=== PATIENT | female | born 1995 | race Caucasian/White ===

== ENCOUNTER 2020-04-12 07:56 | Inpatient (IN) | payer OTHER ==
[2020-04-12] MEDS ORDERED: Acetaminophen 325 MG Tab PO PRN (08:21)
[2020-04-12] MEDS ORDERED: Sodium Chloride 0.9% 10 ML Syringe FLUSH PRN (08:21)
[2020-04-12] MEDS: Misoprostol 25 MCG (1/4 of 100 MCG) Tab VAG PRN ×4 (10:01→22:07)
--- NOTE | 2020-04-12 10:46 | PCM.LDHP ---
L&D History of Present Illness - General Date of Service: 04/12/20 Admit Problem/Dx: Patient Status Order with Admit Dx/Problem 04/12/20 08:21 Patient Status [ADT] Routine Admission Diagnosis/Problem Admission Diagnosis/Problem Gestational hypertension Source of Information: Patient - History of Present Illness Introduction:: Patient is a 37w3d female who presented to L & D for induction of labor due to gestational hypertension. She has been feeling well. Denies any headache, RUQ abdominal pain, or vision changes since last seen. She does have pitting edema in both lower legs. Baby has been active. Denies loss of fluid, vaginal discharge, vaginal bleeding. She has been on labetalol 100 mg BID for the last 2 months. She has a history of genital herpes and has been on prophylactic Valtrex since 32 weeks. - Related Data Allergies/Adverse Reactions: Allergies Allergy/AdvReac Type Severity Reaction Status Date / Time No Known Allergies Allergy Verified 04/12/20 08:53 Home Medications: Home Meds Labetalol HCl [Labetalol] 100 mg PO DAILY 03/22/20 [History] #103/Iron Fumarate/Fa [ ] 1 tab PO DAILY 03/22/20 [History] valACYclovir [Valtrex] 500 mg PO DAILY 03/22/20 [History] Past Medical History Cardiovascular History: Reports: Other (See Below) Other Cardiovascular History: gestational htn Gastrointestinal History: Reports: Gastritis, GERD Genitourinary History: Reports: [employer] History: Reports: , Other (See Below) Other OB/BYN History: hx abnormal pap - Past Surgical History HEENT Surgical History: Reports: Oral Surgery Social & Family History - Family History Cardiac: Reports: Hypertension - Tobacco Use Smoking Status *Q: Former Smoker Tobacco Use Within Last Twelve Months: No - Caffeine Use Caffeine Use: Reports: None - Alcohol Use Alcohol Use History: No - Recreational Drug Use Recreational Drug Use: No Drug Use in Last 12 Months: No - Living Situation & Occupation Living situation: Reports: H&P Review of Systems - Review of Systems: Review Of Systems: See Below General: Denies: Fever, Chills, Weakness HEENT: Denies: Headaches, Visual Changes Pulmonary: Denies: Shortness of Breath, Cough Cardiovascular: Reports: Edema, Blood Pressure Problem. Denies: Chest Pain, Palpitations, Orthopnea, Lightheadedness Gastrointestinal: Denies: Abdominal Pain, Nausea, Vomiting Skin: Denies: Rash Neurological: Denies: Dizziness, Headache, Numbness, Weakness L&D Exam - Exam Exam: See Below - OB Specific Fundal Height In cm: 38 Contraction Frequency (min): 3-6 Contraction Intensity: Mild Movement: Active Heart Tones: Present Heart Tones per Min: 140 Heart Rate (FHR) Variability: Moderate (6-25 bmp) - Riggins Score Riggins Score Cervix Position: Posterior Riggins Score Consistency: Firm Riggins Score Effacement: 31-50% Riggins Score Dilation: Closed Riggins Score Infant's Station: -3 Riggins Score Total: 1 - Exam General: Alert, Oriented HEENT: Conjunctiva Clear Neck: Supple, Trachea Midline Lungs: Clear to Auscultation, Normal Respiratory Effort Cardiovascular: Regular Rate, Regular Rhythm, Normal S1, Normal S2 GI/Abdominal Exam: Non-Tender Genitourinary: Normal external exam (no herpes lesions noted) Extremities: Pedal Edema (3+) Skin: Warm, Intact Neurological: Reflexes Equal Bilateral. No: Focal Deficit Psychiatric: Alert, Normal Affect, Normal Mood - Patient Data Lab Results Last 24 hrs: Laboratory Results - last 24 hr 04/12/20 04/12/20 04/12/20 Range/Units 08:20 09:00 09:05 WBC 10.8 H (5.0-10.0) 10^3/uL RBC 3.75 L (4.2-5.4) 10^6/uL Hgb 11.3 L (12.0-16.0) g/dL Hct 35.1 L (37.0-47.0) % MCV 93.6 (80-100) fL MCH 30.1 (27.0-34.0) pg MCHC 32.2 L (33.0-35.0) g/dL Plt Count 214 (150-450) 10^3/uL BUN (7-18) mg/dL Creatinine (0.55-1.02) mg/dL Est Cr Clr Drug Dosing Estimated GFR (MDRD) Uric Acid (2.6-6.0) mg/dL AST (15-37) U/L ALT (14-59) U/L Lactate Dehydrogenase (81-234) U/L Ur Random Creatinine 138.68 (No establ ref range) mg/dL U Random Total Protein 80.2 H (0.0-11.9) mg/dL Protein/Creatinin Ratio 578.3 H (<150.0) mg/g COVID-19 ([place]) Negative (NEGATIVE) 04/12/20 Range/Units 09:05 WBC (5.0-10.0) 10^3/uL RBC (4.2-5.4) 10^6/uL Hgb (12.0-16.0) g/dL Hct (37.0-47.0) % MCV (80-100) fL MCH (27.0-34.0) pg MCHC (33.0-35.0) g/dL Plt Count (150-450) 10^3/uL BUN 12 (7-18) mg/dL Creatinine 0.59 (0.55-1.02) mg/dL Est Cr Clr Drug Dosing TNP Estimated GFR (MDRD) > 60 Uric Acid 4.3 (2.6-6.0) mg/dL AST 21 (15-37) U/L ALT 25 (14-59) U/L Lactate Dehydrogenase 247 H (81-234) U/L Ur Random Creatinine (No establ ref range) mg/dL U Random Total Protein (0.0-11.9) mg/dL Protein/Creatinin Ratio (<150.0) mg/g COVID-19 ([place]) (NEGATIVE) Result Diagrams: 04/12/20 09:05 04/12/20 09:05 - Problem List (1) Gestational hypertension SNOMED Code(s): 345924101 ICD Code: O13.9 - GESTATIONAL HTN W/O SIGNIFICANT PROTEINURIA, UNSP TRIMESTER Status: Acute Current Visit: Yes (2) Pre-eclampsia SNOMED Code(s): 221785163 ICD Code: O14.90 - UNSPECIFIED PRE-ECLAMPSIA, UNSPECIFIED TRIMESTER Status: Acute Current Visit: Yes (3) High-risk SNOMED Code(s): 81674647 ICD Code: O09.90 - SUPERVISION OF HIGH RISK , UNSP, UNSP TRIMESTER Status: Acute Current Visit: Yes (4) Group B Streptococcus not isolated SNOMED Code(s): 289413577 ICD Code: [id number] - Status: Acute Current Visit: Yes (5) History of herpes genitalis SNOMED Code(s): 591900017 ICD Code: Z86.19 - PERSONAL HISTORY OF OTHER INFECTIOUS AND PARASITIC DISEASES Status: Acute Current Visit: Yes (6) Depression during in third trimester SNOMED Code(s): 45223755, 613984969 ICD Code: O99.343 - OTH MENTAL DISORDERS COMPLICATING , THIRD TRIMESTER; F32.9 - MAJOR DEPRESSIVE DISORDER, SINGLE EPISODE, UNSPECIFIED Status: Acute Current Visit: Yes Problem List Initiated/Reviewed/Updated: Yes Orders Last 24hrs: Active Orders 24 hr Category Date Time Status Patient Status [ADT] Routine ADT 04/12/20 08:21 Active Communication Order [RC] ASDIRECTED Care 04/12/20 08:21 Active Notify Provider Vital Signs OB [RC] ASDIRECTED Care 04/12/20 08:21 Active Notify Provider [RC] PRN Care 04/12/20 08:21 Active Notify Provider [RC] PRN Care 04/12/20 08:21 Active Notify Provider [RC] STAT Care 04/12/20 08:21 Active Peripheral IV Care [RC] . DIRECTED Care 04/12/20 08:22 Active Up ad [place] [RC] PER UNIT ROUTINE Care 04/12/20 08:21 Active Vaginal Exam [RC] PRN Care 04/12/20 08:21 Active Vital Signs [RC] PER UNIT ROUTINE Care 04/12/20 08:21 Active Nothing per Oral Now Diet [DIET] Diet 04/12/20 Breakfast Active Acetaminophen [Tylenol] Med 04/12/20 08:21 Active 650 mg PO Q4H PRN Lactated Ringers [Ringers, Lactated] 1,000 ml Med 04/12/20 08:30 Active IV ASDIRECTED Oxytocin/Normal Saline [Pitocin in NS 30 UNIT/500 ML] Med 04/12/20 12:00 Active 30 unit in 500 ml IV TITRATE Sodium Chloride 0.9% [Saline Flush] Med 04/12/20 08:21 Active 10 ml FLUSH ASDIRECTED PRN miSOPROStoL [Cytotec] Med 04/12/20 08:21 Active 25 mcg VAG Q4H PRN Peripheral IV Insertion Adult [OM.PC] Urgent Oth 04/12/20 08:21 Ordered Medication Orders Acetaminophen (Tylenol) 650 mg PO Q4H PRN PRN Reason: Pain/Fever Lactated Ringer's (Ringers, Lactated) 1,000 mls @ 999 mls/hr IV ASDIRECTED DENIS Oxytocin/Sodium Chloride (Pitocin In Ns 30 Unit/500 Ml) 30 unit in 500 mls @ 2 mls/hr IV TITRATE DENIS; Protocol Misoprostol (Cytotec) 25 mcg VAG Q4H PRN PRN Reason: cervical ripening Sodium Chloride (Saline Flush) 10 ml FLUSH ASDIRECTED PRN PRN Reason: Keep Vein Open Assessment/Plan Comment:: Cytotec for cervical ripening. Initiate Pitocin when appropriate. AROM when able. Analgesic as desired when making cervical change. Close blood pressure monitoring. Strict I's and O's. Continue labetalol 100 mg BID while receiving cytotec. Labs confirm diagnosis of preeclampsia. Patient had a couple blood pressures close to severe range and one in severe range. Repeat 15 minutes later was normal. Labile and related to some anxiety. Will continue to monitor. GBS negative, no abx needed. Ying Espinosa MD
[2020-04-12] MEDS ORDERED: Labetalol 20 MG/4 ML Syringe IVPUSH ONE (14:10)
[2020-04-12] MEDS ORDERED: Labetalol 100 MG Tab PO ONE (19:16)
[2020-04-12] MEDS ORDERED: hydrOXYzine HCl 25 MG Tab PO PRN (20:26)
--- NOTE | 2020-04-12 20:26 | PCM.PNLD ---
Labor Progress Note - VS & Meds Vital Signs: Last Vital Signs Temp 98.9 F 04/12/20 17:30 Pulse 68 04/12/20 20:09 Resp 18 04/12/20 14:30 BP 149/90 H 04/12/20 20:09 Pulse Ox Active Medications: Current Medications Acetaminophen (Tylenol) 650 mg PO Q4H PRN PRN Reason: Pain/Fever Lactated Ringer's (Ringers, Lactated) 1,000 mls @ 999 mls/hr IV ASDIRECTED DENIS Oxytocin/Sodium Chloride (Pitocin In Ns 30 Unit/500 Ml) 30 unit in 500 mls @ 2 mls/hr IV TITRATE DENIS; Protocol Misoprostol (Cytotec) 25 mcg VAG Q4H PRN PRN Reason: cervical ripening Last Admin: 04/12/20 18:02 Dose: 25 mcg Documented by: Sodium Chloride (Saline Flush) 10 ml FLUSH ASDIRECTED PRN PRN Reason: Keep Vein Open Discontinued Medications Labetalol HCl (Normodyne) 10 mg IVPUSH ONETIME ONE Stop: 04/12/20 14:11 Labetalol HCl (Normodyne) 100 mg PO ONETIME ONE Stop: 04/12/20 19:17 Last Admin: 04/12/20 20:09 Dose: 100 mg Documented by: - Uterine Contractions Uterine Monitoring Mode: External [place] Contraction Frequency (min): 2-5 Contraction Duration (sec): 30-80 Contraction Intensity: Mild Uterine Resting Tone: Soft - Monitoring Heart Rate (FHR) Baseline: 140 Heart Rate (FHR) Variability: Moderate (6-25 bmp) Accelerations: Present, 15x15 Decelerations: None Strip Review: Category I - Vaginal Exam Dilation (cm): 1+ Effacement (Percent): 60 Station: -1 Cervical Position: Posterior Sterile Vaginal Exam Performed By: Morelia Hernandez - Labor Progress (Free Text) Labor Progress: Patient comfortable with contractions. Denies headaches, vision changes, RUQ abdominal pain, or worsening edema. Blood pressures labile. Patient somewhat anxious and blood pressure does rise after checks and updates. Will continue to monitor closely. Continue cytotec overnight. Will reevaluate before 6 AM dose of cytotec. Atarax as needed to help with anxiety and sleep. Ying Espinosa MD
[2020-04-12] MEDS ORDERED: Tranexamic Acid 1,000 MG in Sodium Chloride 0.9% 100 ML IV PRN (20:30)
[2020-04-12] MEDS ORDERED: Ondansetron 4 MG/2 ML SDV IVPUSH PRN (20:30)
[2020-04-12] MEDS ORDERED: Carboprost Tromethamine 250 MCG/1 ML Amp IM PRN (20:30)
[2020-04-12] MEDS ORDERED: Lidocaine 1% 30 ML SDV INJECT PRN (20:30)
[2020-04-12] MEDS ORDERED: Methylergonovine 0.2 MG/1 ML Amp IM PRN (20:30)
[2020-04-12] MEDS ORDERED: Misoprostol 400 MCG (4 X 100 MCG TAB) RECTAL PRN (20:30)
[2020-04-13] MEDS: Misoprostol 25 MCG (1/4 of 100 MCG) Tab VAG PRN (02:24)
[2020-04-13] MEDS ORDERED: Labetalol 100 MG Tab PO ONE (06:14)
[2020-04-13] MEDS: Lactated Ringers 1,000 ML IV SCH ×4 (07:39→18:55)
[2020-04-13] MEDS: Oxytocin/Normal Saline 30 UNIT/500 ML BAG IV SCH ×2 (07:56→22:10)
[2020-04-13] MEDS ORDERED: EPINEPHrine 1 MG/1 ML Amp ONE ×2 (09:05→17:48)
--- NOTE | 2020-04-13 10:02 | PCM.PNLD ---
Labor Progress Note - VS & Meds Vital Signs: Last Vital Signs Temp 98.6 F 04/13/20 02:23 Pulse 87 04/13/20 07:29 Resp 20 04/13/20 02:23 BP 172/83 H 04/13/20 07:29 Pulse Ox 98 04/12/20 20:00 Active Medications: Current Medications Acetaminophen (Tylenol) 650 mg PO Q4H PRN PRN Reason: Pain/Fever Carboprost Tromethamine (Hemabate Ds) 250 mcg IM ASDIRECTED PRN PRN Reason: HEMORRHAGE Hydroxyzine HCl (Atarax) 25 mg PO Q8H PRN PRN Reason: Anxiety Lactated Ringer's (Ringers, Lactated) 1,000 mls @ 999 mls/hr IV ASDIRECTED DENIS Last Admin: 04/13/20 07:39 Dose: 125 mls/hr Documented by: Oxytocin/Sodium Chloride (Pitocin In Ns 30 Unit/500 Ml) 30 unit in 500 mls @ 2 mls/hr IV TITRATE DENIS; Protocol Last Admin: 04/13/20 07:56 Dose: 2 munits/min, 2 mls/hr Documented by: Tranexamic Acid 1,000 mg/ (Sodium Chloride) 110 mls @ 660 mls/hr IV ONETIME PRN PRN Reason: Bleeding Lidocaine HCl (Xylocaine-Mpf 1%) 30 ml INJECT ASDIRECTED PRN PRN Reason: Perineal Repair Methylergonovine Maleate (Methergine) 0.2 mg IM ASDIRECTED PRN PRN Reason: Hemorrhage Misoprostol (Cytotec) 25 mcg VAG Q4H PRN PRN Reason: cervical ripening Last Admin: 04/13/20 02:24 Dose: 25 mcg Documented by: Misoprostol (Cytotec) 800 mcg RECTAL ASDIRECTED PRN PRN Reason: Hemorrhage Ondansetron HCl (Zofran) 4 mg IVPUSH Q4H PRN PRN Reason: Nausea/Vomiting Sodium Chloride (Saline Flush) 10 ml FLUSH ASDIRECTED PRN PRN Reason: Keep Vein Open Discontinued Medications Labetalol HCl (Normodyne) 10 mg IVPUSH ONETIME ONE Stop: 04/12/20 14:11 Last Admin: 04/13/20 07:02 Dose: Not Given Documented by: Labetalol HCl (Normodyne) 100 mg PO ONETIME ONE Stop: 04/12/20 19:17 Last Admin: 04/12/20 20:09 Dose: 100 mg Documented by: Labetalol HCl (Normodyne) 100 mg PO ONETIME ONE Stop: 04/13/20 06:15 Last Admin: 04/13/20 07:29 Dose: 100 mg Documented by: - Uterine Contractions Uterine Monitoring Mode: External [place] Contraction Frequency (min): 1-4 Contraction Duration (sec): 60-70 Contraction Intensity: Mild to Moderate Uterine Resting Tone: Soft - Monitoring Heart Rate (FHR) Variability: Moderate (6-25 bmp) Accelerations: Present, 15x15 Decelerations: None Strip Review: Category I - Vaginal Exam Dilation (cm): 4 Effacement (Percent): 80 Station: -2 Cervical Position: Midposition Sterile Vaginal Exam Performed By: Kelly Sousa Vaginal Exam Comment: head applied. - Labor Progress (Free Text) Labor Progress: Five doses of cytotec given overnight and good cervical change noted. Now 3 to 4 cm dilated with 80% effacement. Induction put on hold briefly this morning but will now start pitocin. Patient does desire to do labor without pain medications but options reviewed in case she changes her mind. Discussed AROM procedure and appropriate timing. All questions answered. Blood pressures stable overnight with a few in the 150s/80s. Morning dose of labetalol given. Will continue to monitor. Ying Espinosa MD
[2020-04-13] MEDS ORDERED: fentaNYL 100 MCG/2 ML SDV IVPUSH PRN (15:28)
[2020-04-13] MEDS ORDERED: ePHEDrine 50 MG/ML SDV IVPUSH PRN (15:29)
[2020-04-13] MEDS ORDERED: Naloxone 2 MG/2 ML Syringe IVPUSH PRN (15:29)
[2020-04-13] MEDS ORDERED: Lactated Ringers 500 ML IV SCH ×2 (15:30)
[2020-04-13] MEDS ORDERED: Lactated Ringers 1,000 ML IV SCH (15:45)
--- NOTE | 2020-04-13 17:34 | PCM.PNLD ---
Labor Progress Note - VS & Meds Vital Signs: Last Vital Signs Temp 98.1 F 04/13/20 12:10 Pulse 68 04/13/20 13:15 Resp 16 04/13/20 07:35 BP 141/72 H 04/13/20 13:15 Pulse Ox 98 04/12/20 20:00 Active Medications: Current Medications Acetaminophen (Tylenol) 650 mg PO Q4H PRN PRN Reason: Pain/Fever Carboprost Tromethamine (Hemabate Ds) 250 mcg IM ASDIRECTED PRN PRN Reason: HEMORRHAGE Ephedrine Sulfate (Ephedrine Sulfate) 5 mg IVPUSH Q5M PRN PRN Reason: See Label Comments Fentanyl (Sublimaze) 50 mcg IVPUSH ONETIME PRN PRN Reason: Pain Last Admin: 04/13/20 16:46 Dose: 50 mcg Documented by: Hydroxyzine HCl (Atarax) 25 mg PO Q8H PRN PRN Reason: Anxiety Lactated Ringer's (Ringers, Lactated) 1,000 mls @ 999 mls/hr IV ASDIRECTED [facility] Last Admin: 04/13/20 17:02 Dose: 125 mls/hr Documented by: Oxytocin/Sodium Chloride (Pitocin In Ns 30 Unit/500 Ml) 30 unit in 500 mls @ 2 mls/hr IV TITRATE [facility]; Protocol Last Titration: 04/13/20 14:50 Dose: 7 munits/min, 7 mls/hr Documented by: Tranexamic Acid 1,000 mg/ (Sodium Chloride) 110 mls @ 660 mls/hr IV ONETIME PRN PRN Reason: Bleeding Lactated Ringer's (Ringers, Lactated) 500 mls @ 999 mls/hr IV SEECOMMENT DENIS Lactated Ringer's (Ringers, Lactated) 500 mls @ 999 mls/hr IV .BOLUS DENIS Lactated Ringer's (Ringers, Lactated) 1,000 mls @ 125 mls/hr IV ASDIRECTED [facility] Lidocaine HCl (Xylocaine-Mpf 1%) 30 ml INJECT ASDIRECTED PRN PRN Reason: Perineal Repair Methylergonovine Maleate (Methergine) 0.2 mg IM ASDIRECTED PRN PRN Reason: Hemorrhage Misoprostol (Cytotec) 25 mcg VAG Q4H PRN PRN Reason: cervical ripening Last Admin: 04/13/20 02:24 Dose: 25 mcg Documented by: Misoprostol (Cytotec) 800 mcg RECTAL ASDIRECTED PRN PRN Reason: Hemorrhage Naloxone HCl (Narcan) 0.1 mg IVPUSH SEECOMMENT PRN PRN Reason: Respiratory Depression Ondansetron HCl (Zofran) 4 mg IVPUSH Q4H PRN PRN Reason: Nausea/Vomiting Sodium Chloride (Saline Flush) 10 ml FLUSH ASDIRECTED PRN PRN Reason: Keep Vein Open Discontinued Medications Labetalol HCl (Normodyne) 10 mg IVPUSH ONETIME ONE Stop: 04/12/20 14:11 Last Admin: 04/13/20 07:02 Dose: Not Given Documented by: Labetalol HCl (Normodyne) 100 mg PO ONETIME ONE Stop: 04/12/20 19:17 Last Admin: 04/12/20 20:09 Dose: 100 mg Documented by: Labetalol HCl (Normodyne) 100 mg PO ONETIME ONE Stop: 04/13/20 06:15 Last Admin: 04/13/20 07:29 Dose: 100 mg Documented by: - Uterine Contractions Uterine Monitoring Mode: External [place] Contraction Frequency (min): 1-4 Contraction Duration (sec): 60-70 Contraction Intensity: Mild to Moderate Uterine Resting Tone: Soft - Monitoring Heart Rate (FHR) Baseline: 140 Heart Rate (FHR) Variability: Moderate (6-25 bmp) Accelerations: Present, 15x15 Decelerations: None Strip Review: Category I - Vaginal Exam Dilation (cm): 4 Effacement (Percent): 80 Station: -2 Cervical Position: Midposition Sterile Vaginal Exam Performed By: Kelly Sousa Vaginal Exam Comment: head applied. - Labor Progress (Free Text) Labor Progress: Patient now shreya frequently. AROM performed at 4/80/-2 for clear fluid. Patient and baby tolerated procedure well. She is now having more pain with contractions and discussed use of IV pain medications. Will place one time order for 50 mcg fentanyl PRN. Again discussed intrathecal. Can get at any time now if she desires. Blood pressure remain stable. Continue expectant management. Ying Espinosa MD
[2020-04-13] MEDS ORDERED: fentaNYL 100 MCG/2 ML SDV ONE ×2 (17:48→22:17)
[2020-04-13] MEDS ORDERED: fentaNYL 100 MCG/2 ML SDV ITHECAL ONE (17:49)
--- NOTE | 2020-04-13 18:45 | PCM.PRNOTE ---
- Free Text/Narrative Note: Requested to provide analgesia to full term parturient by provider. Upon entering the room, patient is sitting on edge of bed complaining of severe abdominal/pelvic pain and discomfort. Procedure was discussed with patient including adverse outcomes and expectations. Pt consented to analgesia, SAB/IT. Pt placed into a proper sitting position. Landmarks for SAB/IT were identified and marked. Hands were washed and appropriate PPE was applied. Back was prepped with betadine x3. A sterile, transparent, fenestrated drape was applied. Excess betadine was removed with a 4x4. Using 3 mL of a 1% lidocaine solution, a skin wheel was placed at the L2/L3 interspace. A 24 ga (4 inch) Pencan spinal needle was inserted until positive for CSF. Negative for heme or paresthesias. Injected fentanyl 30 mcg, sufentanil 25 mcg, and 7.5 mg of a 0.75% bupivacaine solution with an epi wash. Pt was placed left lateral position for approximately 20 minutes. There were zero complications or adverse outcomes. Will continue to monitor. Procedure Date & Time: 04/13/20 [id number]
[2020-04-13] MEDS ORDERED: fentaNYL 100 MCG/2 ML SDV IVPUSH ONE (22:21)
[2020-04-13] MEDS ORDERED: Zolpidem 5 MG Tab PO PRN (22:42)
[2020-04-13] MEDS ORDERED: Simethicone 80 MG Tab.Chew PO PRN (22:42)
[2020-04-13] MEDS ORDERED: Famotidine 20 MG Tab PO PRN (22:42)
[2020-04-13] MEDS ORDERED: Misoprostol 400 MCG (4 X 100 MCG TAB) RECTAL PRN (22:42)
[2020-04-13] MEDS ORDERED: Sodium Chloride 0.9% 10 ML Syringe FLUSH PRN (22:42)
[2020-04-13] MEDS ORDERED: Tranexamic Acid 1,000 MG in Sodium Chloride 0.9% 100 ML IV PRN (22:42)
[2020-04-13] MEDS ORDERED: Oxytocin 10 Units/1 ML SDV IM PRN (22:42)
[2020-04-13] MEDS ORDERED: Benzocaine/Menthol 20%-0.5% Spray 56 GM Canister TOP PRN (22:42)
[2020-04-13] MEDS ORDERED: Carboprost Tromethamine 250 MCG/1 ML Amp IM PRN (22:42)
[2020-04-13] MEDS ORDERED: Acetaminophen 325 MG Tab PO PRN (22:42)
--- NOTE | 2020-04-13 22:54 | PCM.DEL ---
L & D Note - General Info Date of Service: 04/13/30 - Delivery Note Labor: Augmented by ARM, Induced by Oxytocin Cervical Ripening Method: Misoprostil Delivery Outcome: Livebirth Infant Delivery Method: Spontaneous Vaginal Delivery-Single Presentation: Left Occiput Anterior (EFRA) Nuchal Cord: None Anesthesia Type: Intrathecal Anesthetic: Lidocaine (Xylocaine) 1% Plain Local Anesthetic Volume: Other (20 cc) Amniotic Fluid Description: Clear Laceration: 1st Degree, Vaginal Suture type: Vicryl Suture size: 3-0 Placenta: Intact, Spontaneous Cord: 3 Vessels Estimated Blood Loss: 400 Score 1 min: 8 Score 5 min: 9 Delivery Comments (Free Text/Narrative):: Patient was admitted for induction of labor for gestational hypertension. She had been on 100 mg labetalol BID and was well controlled. Admission labs showed new diagnosis of preeclampsia. Cervical ripening with cytotec X 5 was given. She was given several doses of oral Labetalol during that time. Pitocin was initiated and AROM performed for clear fluid. Intrathecal anesthesia was provided. She progressed to complete dilation and pushed for 1 hour. Viable male delivered via . The anterior shoulder was delivered with gentle traction. The was placed on the maternal abdomen and the cord was clamped and cut. Placenta was delivered intact via active management. Oxytocin was initiated immediately following the delivery of the placenta. Moderate bleeding was observed so rectal cytotec and TXA both given. Cervix, vagina, and perineum were explored. A right and left vaginal wall laceration with some extension on the left were briskly bleeding so packing applied for 20 minutes. Hemostasis was achieved after packing. Dr. Marquez did step in to help with repair and was able throw a locking stitch in to close the laceration. A bleeding midline laceration also repaired with figure 8 suture. Bleeding controlled. Mother and were stable and remained in the delivery room. - General Info Date of Service: 04/13/20 - Patient Data Vitals - Most Recent: Last Vital Signs Temp 96.9 F 04/13/20 19:00 Pulse 57 L 04/13/20 19:56 Resp 14 04/13/20 19:56 BP 145/73 H 04/13/20 19:15 Pulse Ox 100 04/13/20 19:56 Weight - Most Recent: 262 lb I&O - Last 24 Hours: Intake & Output 04/13/20 04/13/20 04/13/20 06:59 14:59 22:59 Intake Total 720 Output Total 1000 150 Balance -280 -150 Med Orders - Current: Current Medications Fentanyl (Sublimaze) 50 mcg IVPUSH ONETIME PRN PRN Reason: Pain Last Admin: 04/13/20 16:46 Dose: 50 mcg Documented by: Hydroxyzine HCl (Atarax) 25 mg PO Q8H PRN PRN Reason: Anxiety Sodium Chloride (Saline Flush) 10 ml FLUSH ASDIRECTED PRN PRN Reason: Keep Vein Open Discontinued Medications Acetaminophen (Tylenol) 650 mg PO Q4H PRN PRN Reason: Pain/Fever Carboprost Tromethamine (Hemabate Ds) 250 mcg IM ASDIRECTED PRN PRN Reason: HEMORRHAGE Ephedrine Sulfate (Ephedrine Sulfate) 5 mg IVPUSH Q5M PRN PRN Reason: See Label Comments Epinephrine HCl (Adrenalin) Confirm Administered Dose 1 mg .ROUTE .STK-MED ONE Stop: 04/13/20 17:49 Fentanyl (Sublimaze) Confirm Administered Dose 100 mcg .ROUTE .STK-MED ONE Stop: 04/13/20 17:49 Fentanyl (Sublimaze) Confirm Administered Dose 100 mcg .ROUTE .STK-MED ONE Stop: 04/13/20 22:18 Fentanyl (Sublimaze) 50 mcg IVPUSH ONETIME ONE Stop: 04/13/20 22:22 Lactated Ringer's (Ringers, Lactated) 1,000 mls @ 999 mls/hr IV ASDIRECTED DENIS Last Admin: 04/13/20 18:55 Dose: 125 mls/hr Documented by: Oxytocin/Sodium Chloride (Pitocin In Ns 30 Unit/500 Ml) 30 unit in 500 mls @ 2 mls/hr IV TITRATE DENIS; Protocol Last Admin: 04/13/20 22:10 Dose: 250 munits/min, 250 mls/hr Documented by: Tranexamic Acid 1,000 mg/ (Sodium Chloride) 110 mls @ 660 mls/hr IV ONETIME PRN PRN Reason: Bleeding Last Admin: 04/13/20 21:38 Dose: 660 mls/hr Documented by: Lactated Ringer's (Ringers, Lactated) 500 mls @ 999 mls/hr IV SEECOMMENT [facility] Lactated Ringer's (Ringers, Lactated) 500 mls @ 999 mls/hr IV .BOLUS DENIS Lactated Ringer's (Ringers, Lactated) 1,000 mls @ 125 mls/hr IV ASDIRECTED DENIS Labetalol HCl (Normodyne) 10 mg IVPUSH ONETIME ONE Stop: 04/12/20 14:11 Last Admin: 04/13/20 07:02 Dose: Not Given Documented by: Labetalol HCl (Normodyne) 100 mg PO ONETIME ONE Stop: 04/12/20 19:17 Last Admin: 04/12/20 20:09 Dose: 100 mg Documented by: Labetalol HCl (Normodyne) 100 mg PO ONETIME ONE Stop: 04/13/20 06:15 Last Admin: 04/13/20 07:29 Dose: 100 mg Documented by: Lidocaine HCl (Xylocaine-Mpf 1%) 30 ml INJECT ASDIRECTED PRN PRN Reason: Perineal Repair Last Admin: 04/13/20 21:40 Dose: 15 ml Documented by: Methylergonovine Maleate (Methergine) 0.2 mg IM ASDIRECTED PRN PRN Reason: Hemorrhage Misoprostol (Cytotec) 25 mcg VAG Q4H PRN PRN Reason: cervical ripening Last Admin: 04/13/20 02:24 Dose: 25 mcg Documented by: Misoprostol (Cytotec) 800 mcg RECTAL ASDIRECTED PRN PRN Reason: Hemorrhage Last Admin: 04/13/20 21:35 Dose: 800 mcg Documented by: Naloxone HCl (Narcan) 0.1 mg IVPUSH SEECOMMENT PRN PRN Reason: Respiratory Depression Ondansetron HCl (Zofran) 4 mg IVPUSH Q4H PRN PRN Reason: Nausea/Vomiting Last Admin: 04/13/20 17:44 Dose: 4 mg Documented by: Sufentanil Citrate (Sufenta) Confirm Administered Dose 50 mcg .ROUTE .STK-MED ONE Stop: 04/13/20 17:49 - Problem List & Annotations (1) Gestational hypertension SNOMED Code(s): 117913144 Code(s): O13.9 - GESTATIONAL HTN W/O SIGNIFICANT PROTEINURIA, UNSP TRIMESTER Status: Acute Current Visit: Yes (2) Pre-eclampsia SNOMED Code(s): 229925761 Code(s): O14.90 - UNSPECIFIED PRE-ECLAMPSIA, UNSPECIFIED TRIMESTER Status: Acute Current Visit: Yes (3) High-risk SNOMED Code(s): 41178767 Code(s): O09.90 - SUPERVISION OF HIGH RISK , UNSP, UNSP TRIMESTER Status: Acute Current Visit: Yes (4) Group B Streptococcus not isolated SNOMED Code(s): 238667334 Code(s): HVZ8340 - Status: Acute Current Visit: Yes (5) History of herpes genitalis SNOMED Code(s): 161756652 Code(s): Z86.19 - PERSONAL HISTORY OF OTHER INFECTIOUS AND PARASITIC DISEASES Status: Acute Current Visit: Yes (6) Depression during in third trimester SNOMED Code(s): 75893163, 174559821 Code(s): O99.343 - [facility] MENTAL DISORDERS COMPLICATING , THIRD TRIMESTER; F32.9 - MAJOR DEPRESSIVE DISORDER, SINGLE EPISODE, UNSPECIFIED Status: Acute Current Visit: Yes (7) Vaginal delivery SNOMED Code(s): 764757186 Code(s): O80 - ENCOUNTER FOR FULL-TERM UNCOMPLICATED DELIVERY Status: Acute Current Visit: Yes (8) Laceration of vaginal wall or sulcus without perineal laceration during delivery SNOMED Code(s): 010519852 Code(s): O71.4 - OBSTETRIC HIGH VAGINAL LACERATION ALONE Status: Acute Current Visit: Yes - Problem List Review Problem List Initiated/Reviewed/Updated: Yes - My Orders Last 24 Hours: My Active Orders 04/13/20 Breakfast Regular Diet [DIET] 04/13/20 Lunch Regular Diet [DIET] 04/13/20 15:28 fentaNYL [Sublimaze] 50 mcg IVPUSH ONETIME PRN 04/13/20 15:29 Communication Order [RC] PER UNIT ROUTINE Heart Rate [RC] Click to Edit Blood Pressure [OM.PC] Routine 04/13/20 15:30 Lactated Ringers [Ringers, Lactated] 500 ml IV .BOLUS Lactated Ringers [Ringers, Lactated] 500 ml IV SEECOMMENT 04/13/20 15:45 Lactated Ringers [Ringers, Lactated] 1,000 ml IV ASDIRECTED 04/13/20 Dinner Regular Diet [DIET] 04/13/20 22:42 Up ad Shasta [RC] ASDIRECTED Vital Signs [RC] Q4H Acetaminophen [Tylenol] 650 mg PO Q6H PRN Benzocaine/Menthol [Dermoplast Pain Relief [place]] See Dose Instructions TOP Q4H PRN Carboprost Tromethamine [Hemabate DS] 250 mcg IM ASDIRECTED PRN Docusate Sodium [Colace] 100 mg PO BID PRN Famotidine [Pepcid] 20 mg PO BID PRN Ibuprofen [Motrin] 800 mg PO Q8H PRN Oxytocin [Pitocin] 10 unit IM ONETIME PRN Simethicone 80 mg PO Q4H PRN Sodium Chloride 0.9% [Saline Flush] 10 ml FLUSH ASDIRECTED PRN Tranexamic Acid [Cyklokapron] 1,000 mg Sodium Chloride 0.9% [Normal Saline] 100 ml IV ONETIME Zolpidem [Ambien] 5 mg PO BEDTIME PRN miSOPROStoL [Cytotec] 800 mcg RECTAL ONETIME PRN witch Ivis [Medi-Pads] 1 each TOP Q4HR PRN Assess Lochia [WOMSER] Per Unit Routine Assess Uterine Involution [WOMSER] Per Unit Routine Breast Pump [WOMSER] Per Unit Routine Ice Therapy [OM.PC] Per Unit Routine Perineal Care [OM.PC] Per Unit Routine Saline Lock Insert [OM.PC] Urgent Sitz Bath [OM.PC] Per Unit Routine 04/14/20 09:00 CBC W/O DIFF,HEMOGRAM [HEME] Routine Vit with Ca/FA/Iron [ Plus Iron] 1 each PO DAILY
[2020-04-14] MEDS: Ibuprofen 800 MG Tab PO PRN ×3 (00:11→16:20)
[2020-04-14] MEDS: Prenatal Multivitamin with Calcium/Folic Acid/Iron Tab PO SCH (08:12)
[2020-04-14] MEDS: Docusate Sodium 100 MG Cap PO PRN ×2 (08:14→21:24)
--- NOTE | 2020-04-14 12:00 | PCM.PNPP ---
- General Info Date of Service: 04/14/20 Admission Dx/Problem (Free Text): Patient is day 1 s/p vaginal delivery. She reports her lochia is mild. She is not . She has good pain control with OTC medications. She has been advancing her diet and has good PO intake. She denies nausea and vomiting. She has been urinating spontaneously. She is passing flatus. She has not had a bowel movement. She has been ambulating. She has no complaints today. Her blood pressures have been labile again but the most recent pressure was normal. She denies headaches, vision changes, RUQ abdominal pain. Her edema is improving. Functional Status: Reports: Pain Controlled - Review of Systems General: Denies: Fever, Chills HEENT: Denies: Headaches, Visual Changes Pulmonary: Denies: Shortness of Breath, Cough, Wheezing Cardiovascular: Reports: Edema. Denies: Chest Pain, Lightheadedness Gastrointestinal: Denies: Abdominal Pain, Nausea, Vomiting Skin: Denies: Rash Neurological: Denies: Headache, Numbness - Patient Data Vital Signs - Most Recent: Last Vital Signs Temp 98.3 F 04/14/20 08:00 Pulse 89 04/14/20 08:00 Resp 16 04/14/20 08:00 BP 124/76 04/14/20 08:00 Pulse Ox 100 04/14/20 08:00 Weight - Most Recent: 262 lb I&O - Last 24 Hours: Intake & Output 04/13/20 04/14/20 04/14/20 22:59 06:59 14:59 Output Total 375 Balance -375 Lab Results - Last 24 Hours: Laboratory Results - last 24 hr 04/14/20 Range/Units 09:13 WBC 15.3 H (5.0-10.0) 10^3/uL RBC 2.96 L (4.2-5.4) 10^6/uL Hgb 9.0 L D (12.0-16.0) g/dL Hct 28.5 L (37.0-47.0) % MCV 96.3 (80-100) fL MCH 30.4 (27.0-34.0) pg MCHC 31.6 L (33.0-35.0) g/dL Plt Count 210 (150-450) 10^3/uL Med Orders - Current: Current Medications Acetaminophen (Tylenol) 650 mg PO Q6H PRN PRN Reason: mild pain or fever Benzocaine/Menthol (Dermoplast Pain Relief [place]) 0 gm TOP Q4H PRN PRN Reason: Perineal comfort measures Last Admin: 04/14/20 00:10 Dose: 1 spray Documented by: Carboprost Tromethamine (Hemabate Ds) 250 mcg IM ASDIRECTED PRN PRN Reason: Excessive vaginal bleeding Docusate Sodium (Colace) 100 mg PO BID PRN PRN Reason: Constipation Last Admin: 04/14/20 08:14 Dose: 100 mg Documented by: Famotidine (Pepcid) 20 mg PO BID PRN PRN Reason: Heartburn Fentanyl (Sublimaze) 50 mcg IVPUSH ONETIME PRN PRN Reason: Pain Last Admin: 04/13/20 16:46 Dose: 50 mcg Documented by: Hydroxyzine HCl (Atarax) 25 mg PO Q8H PRN PRN Reason: Anxiety Tranexamic Acid 1,000 mg/ (Sodium Chloride) 110 mls @ 660 mls/hr IV ONETIME PRN PRN Reason: Bleeding Ibuprofen (Motrin) 800 mg PO Q8H PRN PRN Reason: Mild Pain or Fever Last Admin: 04/14/20 08:13 Dose: 800 mg Documented by: Misoprostol (Cytotec) 800 mcg RECTAL ONETIME PRN PRN Reason: Hemorrhage Oxytocin (Pitocin) 10 unit IM ONETIME PRN PRN Reason: Bleeding Prenat Multivit/[place]/Iron/Folic Ac ( Plus Iron) 1 each PO DAILY DENIS Last Admin: 04/14/20 08:12 Dose: 1 each Documented by: Simethicone (Simethicone) 80 mg PO Q4H PRN PRN Reason: Gas Sodium Chloride (Saline Flush) 10 ml FLUSH ASDIRECTED PRN PRN Reason: Keep Vein Open Sodium Chloride (Saline Flush) 10 ml FLUSH ASDIRECTED PRN PRN Reason: Keep Vein Open Witch Trinity (Medi-Pads) 1 each TOP Q4HR PRN PRN Reason: Perineal Comfort Measure Last Admin: 04/14/20 00:11 Dose: 1 pad Documented by: Zolpidem Tartrate (Ambien) 5 mg PO BEDTIME PRN PRN Reason: Insomnia Discontinued Medications Acetaminophen (Tylenol) 650 mg PO Q4H PRN PRN Reason: Pain/Fever Carboprost Tromethamine (Hemabate Ds) 250 mcg IM ASDIRECTED PRN PRN Reason: HEMORRHAGE Ephedrine Sulfate (Ephedrine Sulfate) 5 mg IVPUSH Q5M PRN PRN Reason: See Label Comments Epinephrine HCl (Adrenalin) Confirm Administered Dose 1 mg .ROUTE .STK-MED ONE Stop: 04/13/20 17:49 Last Admin: 04/14/20 04:41 Dose: Not Given Documented by: Fentanyl (Sublimaze) Confirm Administered Dose 100 mcg .ROUTE .STK-MED ONE Stop: 04/13/20 17:49 Last Admin: 04/14/20 04:41 Dose: Not Given Documented by: Fentanyl (Sublimaze) Confirm Administered Dose 100 mcg .ROUTE .STK-MED ONE Stop: 04/13/20 22:18 Last Admin: 04/14/20 05:11 Dose: Not Given Documented by: Fentanyl (Sublimaze) 50 mcg IVPUSH ONETIME ONE Stop: 04/13/20 22:22 Last Admin: 04/13/20 22:21 Dose: 50 mcg Documented by: Lactated Ringer's (Ringers, Lactated) 1,000 mls @ 999 mls/hr IV ASDIRECTED DENIS Last Admin: 04/13/20 18:55 Dose: 125 mls/hr Documented by: Oxytocin/Sodium Chloride (Pitocin In Ns 30 Unit/500 Ml) 30 unit in 500 mls @ 2 mls/hr IV TITRATE DENIS; Protocol Last Titration: 04/14/20 00:50 Dose: 0 munits/min, 0 mls/hr Documented by: Tranexamic Acid 1,000 mg/ (Sodium Chloride) 110 mls @ 660 mls/hr IV ONETIME PRN PRN Reason: Bleeding Last Admin: 04/13/20 21:38 Dose: 660 mls/hr Documented by: Lactated Ringer's (Ringers, Lactated) 500 mls @ 999 mls/hr IV SEECOMMENT DENIS Lactated Ringer's (Ringers, Lactated) 500 mls @ 999 mls/hr IV .BOLUS DENIS Lactated Ringer's (Ringers, Lactated) 1,000 mls @ 125 mls/hr IV ASDIRECTED DENIS Labetalol HCl (Normodyne) 10 mg IVPUSH ONETIME ONE Stop: 04/12/20 14:11 Last Admin: 04/13/20 07:02 Dose: Not Given Documented by: Labetalol HCl (Normodyne) 100 mg PO ONETIME ONE Stop: 04/12/20 19:17 Last Admin: 04/12/20 20:09 Dose: 100 mg Documented by: Labetalol HCl (Normodyne) 100 mg PO ONETIME ONE Stop: 04/13/20 06:15 Last Admin: 04/13/20 07:29 Dose: 100 mg Documented by: Lidocaine HCl (Xylocaine-Mpf 1%) 30 ml INJECT ASDIRECTED PRN PRN Reason: Perineal Repair Last Admin: 04/13/20 21:40 Dose: 15 ml Documented by: Methylergonovine Maleate (Methergine) 0.2 mg IM ASDIRECTED PRN PRN Reason: Hemorrhage Misoprostol (Cytotec) 25 mcg VAG Q4H PRN PRN Reason: cervical ripening Last Admin: 04/13/20 02:24 Dose: 25 mcg Documented by: Misoprostol (Cytotec) 800 mcg RECTAL ASDIRECTED PRN PRN Reason: Hemorrhage Last Admin: 04/13/20 21:35 Dose: 800 mcg Documented by: Naloxone HCl (Narcan) 0.1 mg IVPUSH SEECOMMENT PRN PRN Reason: Respiratory Depression Ondansetron HCl (Zofran) 4 mg IVPUSH Q4H PRN PRN Reason: Nausea/Vomiting Last Admin: 04/13/20 17:44 Dose: 4 mg Documented by: Sufentanil Citrate (Sufenta) Confirm Administered Dose 50 mcg .ROUTE .STK-MED ONE Stop: 04/13/20 17:49 Last Admin: 04/14/20 04:41 Dose: Not Given Documented by: - Interaction Support Person: - Recovery Exam Fundal Tone: Firm Fundal Level: At Umbilicus Fundal Placement: Midline Lochia Amount: Small Lochia Color: Rubra/Red Perineum Description: Intact, Minimal Bruising/Swelling Episiotomy/Laceration: Approximated Bladder Status: Voiding Urinary Elimination: Voided - Exam HEENT: Pupils Equal, Mucous Membr. Moist/[place] Neck: Supple Lungs: Clear to Auscultation, Normal Respiratory Effort Cardiovascular: Regular Rate, Regular Rhythm GI/Abdominal Exam: Soft, No Distention Extremities: Non-Tender, Pedal Edema (2+) Skin: Warm, Dry Neurological: No New Focal Deficit, Reflexes Equal Bilateral Psy/Mental Status: Normal Mood - Problem List & Annotations (1) Gestational hypertension SNOMED Code(s): 766101488 Code(s): O13.9 - GESTATIONAL HTN W/O SIGNIFICANT PROTEINURIA, UNSP TRIMESTER Status: Acute Current Visit: Yes (2) Pre-eclampsia SNOMED Code(s): 274777397 Code(s): O14.90 - UNSPECIFIED PRE-ECLAMPSIA, UNSPECIFIED TRIMESTER Status: Acute Current Visit: Yes (3) High-risk SNOMED Code(s): 83938448 Code(s): O09.90 - SUPERVISION OF HIGH RISK , UNSP, UNSP TRIMESTER Status: Acute Current Visit: Yes (4) Group B Streptococcus not isolated SNOMED Code(s): 573226700 Code(s): SZG3939 - Status: Acute Current Visit: Yes (5) History of herpes genitalis SNOMED Code(s): 959040319 Code(s): Z86.19 - PERSONAL HISTORY OF OTHER INFECTIOUS AND PARASITIC DISEASES Status: Acute Current Visit: Yes (6) Depression during in third trimester SNOMED Code(s): 50986222, 276417642 Code(s): O99.343 - OTH MENTAL DISORDERS COMPLICATING , THIRD TRIMESTER; F32.9 - MAJOR DEPRESSIVE DISORDER, SINGLE EPISODE, UNSPECIFIED Status: Acute Current Visit: Yes (7) Vaginal delivery SNOMED Code(s): 596679247 Code(s): O80 - ENCOUNTER FOR FULL-TERM UNCOMPLICATED DELIVERY Status: Acute Current Visit: Yes (8) Laceration of vaginal wall or sulcus without perineal laceration during delivery SNOMED Code(s): 815310731 Code(s): O71.4 - OBSTETRIC HIGH VAGINAL LACERATION ALONE Status: Acute Current Visit: Yes - Problem List Review Problem List Initiated/Reviewed/Updated: Yes - My Orders Last 24 Hours: My Active Orders 04/13/20 Lunch Regular Diet [DIET] 04/13/20 15:28 fentaNYL [Sublimaze] 50 mcg IVPUSH ONETIME PRN 04/13/20 15:29 Blood Pressure [OM.PC] Routine 04/13/20 Dinner Regular Diet [DIET] 04/13/20 20:38 Urinary Catheter Insertion [Insert Urinary Catheter] [OM.PC] PRN 04/13/20 22:42 Up ad [place]asta [RC] ASDIRECTED Vital Signs [RC] Q4H Acetaminophen [Tylenol] 650 mg PO Q6H PRN Benzocaine/Menthol [Dermoplast Pain Relief [place]] See Dose Instructions TOP Q4H PRN Carboprost Tromethamine [Hemabate DS] 250 mcg IM ASDIRECTED PRN Docusate Sodium [Colace] 100 mg PO BID PRN Famotidine [Pepcid] 20 mg PO BID PRN Ibuprofen [Motrin] 800 mg PO Q8H PRN Oxytocin [Pitocin] 10 unit IM ONETIME PRN Simethicone 80 mg PO Q4H PRN Sodium Chloride 0.9% [Saline Flush] 10 ml FLUSH ASDIRECTED PRN Tranexamic Acid [Cyklokapron] 1,000 mg Sodium Chloride 0.9% [Normal Saline] 100 ml IV ONETIME Zolpidem [Ambien] 5 mg PO BEDTIME PRN miSOPROStoL [Cytotec] 800 mcg RECTAL ONETIME PRN witch Trinity [Medi-Pads] 1 each TOP Q4HR PRN Assess Lochia [WOMSER] Per Unit Routine Assess Uterine Involution [WOMSER] Per Unit Routine Breast Pump [WOMSER] Per Unit Routine Ice Therapy [OM.PC] Per Unit Routine Perineal Care [OM.PC] Per Unit Routine Saline Lock Insert [OM.PC] Urgent Sitz Bath [OM.PC] Per Unit Routine 04/14/20 09:00 Vit with Ca/FA/Iron [ Plus Iron] 1 each PO DAILY 04/14/20 20:38 Urinary Catheter Insertion [Insert Urinary Catheter] [OM.PC] PRN - Plan Plan:: Encourage ambulation. Continue to advance diet. Saline lock IV. Continue normal post cares. Continue to ice to minimize swelling. Encouraged oral hydration to increase urine output. Swelling is improving. Continue to monitor blood pressures. Still labile. Some overnight pressures over 150/90 but this mornings was normal. Will have low threshold to restart oral labetalol. Plan for discharge tomorrow. Ying Espinosa MD
[2020-04-15] MEDS: Ibuprofen 800 MG Tab PO PRN ×2 (00:49→08:02)
[2020-04-15] MEDS: Prenatal Multivitamin with Calcium/Folic Acid/Iron Tab PO SCH (08:02)
[2020-04-15] MEDS: Docusate Sodium 100 MG Cap PO PRN (08:02)
--- NOTE | 2020-04-15 08:09 | PCM.DCSUM1 ---
Discharge Summary - Hospital Course Free Text/Narrative:: Patient is a who was brought in for induction of labor at 37w3d for gestational hypertension. Admit labs revealed UPCR of 0.5 so diagnosed with preeclampsia. She continued on oral labetalol through 5 doses of Cytotec. She was then started on pitocin. She received an intrathecal. She required no additional blood pressure medications throughout labor. She progressed to complete dilation and had an uncomplicated delivery. She did have a bleeding vaginal wall laceration that became hemostatic with packing followed by suturing. Her post period was uncomplicated. Her blood pressures were labile but mostly normal on day of discharge. She did not require any blood pressure medications and remained asymptomatic. Her urine output was adequate. She was started on iron for anemia. Discharge hemoglobin was 9.0. Her pain was well controlled. She will follow up in 3 days for blood pressure check. - Discharge Data Discharge Date: 04/14/20 Discharge Disposition: Home, Self-Care 01 Condition: Good - Referral to Home Health Primary Care Physician: Ying Espinosa MD - Discharge Diagnosis/Problem(s) (1) Gestational hypertension SNOMED Code(s): 388172626 ICD Code: O13.9 - GESTATIONAL HTN W/O SIGNIFICANT PROTEINURIA, UNSP TRIMESTER Status: Acute Current Visit: Yes (2) Pre-eclampsia SNOMED Code(s): 092077304 ICD Code: O14.90 - UNSPECIFIED PRE-ECLAMPSIA, UNSPECIFIED TRIMESTER Status: Acute Current Visit: Yes (3) High-risk SNOMED Code(s): 73336216 ICD Code: O09.90 - SUPERVISION OF HIGH RISK , UNSP, UNSP TRIMESTER Status: Acute Current Visit: Yes (4) Group B Streptococcus not isolated SNOMED Code(s): 645456425 ICD Code: [id number] - Status: Acute Current Visit: Yes (5) History of herpes genitalis SNOMED Code(s): 629243758 ICD Code: Z86.19 - PERSONAL HISTORY OF OTHER INFECTIOUS AND PARASITIC DISEASES Status: Acute Current Visit: Yes (6) Depression during in third trimester SNOMED Code(s): 32817048, 015595774 ICD Code: O99.343 - OTH MENTAL DISORDERS COMPLICATING , THIRD TRIME STER; F32.9 - MAJOR DEPRESSIVE DISORDER, SINGLE EPISODE, UNSPECIFIED Status: Acute Current Visit: Yes (7) Vaginal delivery SNOMED Code(s): 131043922 ICD Code: O80 - ENCOUNTER FOR FULL-TERM UNCOMPLICATED DELIVERY Status: Acute Current Visit: Yes (8) Laceration of vaginal wall or sulcus without perineal laceration during delivery SNOMED Code(s): 684484670 ICD Code: O71.4 - OBSTETRIC HIGH VAGINAL LACERATION ALONE Status: Acute Current Visit: Yes - Discharge Plan *PRESCRIPTION DRUG MONITORING PROGRAM REVIEWED*: Not Applicable *COPY OF PRESCRIPTION DRUG MONITORING REPORT IN PATIENT CASSY: Not Applicable Home Medications: Home Meds Labetalol HCl [Labetalol] 100 mg PO DAILY 03/22/20 [History] #103/Iron Fumarate/Fa [ ] 1 tab PO DAILY 03/22/20 [History] valACYclovir [Valtrex] 500 mg PO DAILY 03/22/20 [History] Patient Handouts: Vaginal Delivery, Care of a Perineal Tear Referrals: Ying Espinosa MD [Primary Care Provider] - (Blood pressure recheck on Saturday April 18, 2020 with baby. ) - Discharge Summary/Plan Comment DC Time >30 min.: No - Patient Data Vitals - Most Recent: Last Vital Signs Temp 97.6 F 04/15/20 05:00 Pulse 76 04/15/20 05:00 Resp 20 04/15/20 05:00 BP 122/56 L 04/15/20 05:00 Pulse Ox 100 04/15/20 05:00 Weight - Most Recent: 262 lb Lab Results - Last 24 hrs: Laboratory Results - last 24 hr 04/14/20 Range/Units 09:13 WBC 15.3 H (5.0-10.0) 10^3/uL RBC 2.96 L (4.2-5.4) 10^6/uL Hgb 9.0 L D (12.0-16.0) g/dL Hct 28.5 L (37.0-47.0) % MCV 96.3 (80-100) fL MCH 30.4 (27.0-34.0) pg MCHC 31.6 L (33.0-35.0) g/dL Plt Count 210 (150-450) 10^3/uL Med Orders - Current: Current Medications Acetaminophen (Tylenol) 650 mg PO Q6H PRN PRN Reason: mild pain or fever Benzocaine/Menthol (Dermoplast Pain Relief [place]) 0 gm TOP Q4H PRN PRN Reason: Perineal comfort measures Last Admin: 04/14/20 00:10 Dose: 1 spray Documented by: Carboprost Tromethamine (Hemabate Ds) 250 mcg IM ASDIRECTED PRN PRN Reason: Excessive vaginal bleeding Docusate Sodium (Colace) 100 mg PO BID PRN PRN Reason: Constipation Last Admin: 04/15/20 08:02 Dose: 100 mg Documented by: Famotidine (Pepcid) 20 mg PO BID PRN PRN Reason: Heartburn Fentanyl (Sublimaze) 50 mcg IVPUSH ONETIME PRN PRN Reason: Pain Last Admin: 04/13/20 16:46 Dose: 50 mcg Documented by: Hydroxyzine HCl (Atarax) 25 mg PO Q8H PRN PRN Reason: Anxiety Tranexamic Acid 1,000 mg/ (Sodium Chloride) 110 mls @ 660 mls/hr IV ONETIME PRN PRN Reason: Bleeding Ibuprofen (Motrin) 800 mg PO Q8H PRN PRN Reason: Mild Pain or Fever Last Admin: 04/15/20 08:02 Dose: 800 mg Documented by: Misoprostol (Cytotec) 800 mcg RECTAL ONETIME PRN PRN Reason: Hemorrhage Oxytocin (Pitocin) 10 unit IM ONETIME PRN PRN Reason: Bleeding Prenat Multivit/[place]/Iron/Folic Ac ( Plus Iron) 1 each PO DAILY DENIS Last Admin: 04/15/20 08:02 Dose: 1 each Documented by: Simethicone (Simethicone) 80 mg PO Q4H PRN PRN Reason: Gas Sodium Chloride (Saline Flush) 10 ml FLUSH ASDIRECTED PRN PRN Reason: Keep Vein Open Sodium Chloride (Saline Flush) 10 ml FLUSH ASDIRECTED PRN PRN Reason: Keep Vein Open [place] (Medi-Pads) 1 each TOP Q4HR PRN PRN Reason: Perineal Comfort Measure Last Admin: 04/14/20 00:11 Dose: 1 pad Documented by: Zolpidem Tartrate (Ambien) 5 mg PO BEDTIME PRN PRN Reason: Insomnia Discontinued Medications Acetaminophen (Tylenol) 650 mg PO Q4H PRN PRN Reason: Pain/Fever Carboprost Tromethamine (Hemabate Ds) 250 mcg IM ASDIRECTED PRN PRN Reason: HEMORRHAGE Ephedrine Sulfate (Ephedrine Sulfate) 5 mg IVPUSH Q5M PRN PRN Reason: See Label Comments Epinephrine HCl (Adrenalin) Confirm Administered Dose 1 mg .ROUTE .STK-MED ONE Stop: 04/13/20 17:49 Last Admin: 04/14/20 04:41 Dose: Not Given Documented by: Fentanyl (Sublimaze) Confirm Administered Dose 100 mcg .ROUTE .STK-MED ONE Stop: 04/13/20 17:49 Last Admin: 04/14/20 04:41 Dose: Not Given Documented by: Fentanyl (Sublimaze) Confirm Administered Dose 100 mcg .ROUTE .STK-MED ONE Stop: 04/13/20 22:18 Last Admin: 04/14/20 05:11 Dose: Not Given Documented by: Fentanyl (Sublimaze) 50 mcg IVPUSH ONETIME ONE Stop: 04/13/20 22:22 Last Admin: 04/13/20 22:21 Dose: 50 mcg Documented by: Lactated Ringer's (Ringers, Lactated) 1,000 mls @ 999 mls/hr IV ASDIRECTED DENIS Last Admin: 04/13/20 18:55 Dose: 125 mls/hr Documented by: Oxytocin/Sodium Chloride (Pitocin In Ns 30 Unit/500 Ml) 30 unit in 500 mls @ 2 mls/hr IV TITRATE [facility]; Protocol Last Titration: 04/14/20 00:50 Dose: 0 munits/min, 0 mls/hr Documented by: Tranexamic Acid 1,000 mg/ (Sodium Chloride) 110 mls @ 660 mls/hr IV ONETIME PRN PRN Reason: Bleeding Last Admin: 04/13/20 21:38 Dose: 660 mls/hr Documented by: Lactated Ringer's (Ringers, Lactated) 500 mls @ 999 mls/hr IV SEECOMMENT DENIS Lactated Ringer's (Ringers, Lactated) 500 mls @ 999 mls/hr IV .BOLUS DENIS Lactated Ringer's (Ringers, Lactated) 1,000 mls @ 125 mls/hr IV ASDIRECTED DENIS Labetalol HCl (Normodyne) 10 mg IVPUSH ONETIME ONE Stop: 04/12/20 14:11 Last Admin: 04/13/20 07:02 Dose: Not Given Documented by: Labetalol HCl (Normodyne) 100 mg PO ONETIME ONE Stop: 04/12/20 19:17 Last Admin: 04/12/20 20:09 Dose: 100 mg Documented by: Labetalol HCl (Normodyne) 100 mg PO ONETIME ONE Stop: 04/13/20 06:15 Last Admin: 04/13/20 07:29 Dose: 100 mg Documented by: Lidocaine HCl (Xylocaine-Mpf 1%) 30 ml INJECT ASDIRECTED PRN PRN Reason: Perineal Repair Last Admin: 04/13/20 21:40 Dose: 15 ml Documented by: Methylergonovine Maleate (Methergine) 0.2 mg IM ASDIRECTED PRN PRN Reason: Hemorrhage Misoprostol (Cytotec) 25 mcg VAG Q4H PRN PRN Reason: cervical ripening Last Admin: 04/13/20 02:24 Dose: 25 mcg Documented by: Misoprostol (Cytotec) 800 mcg RECTAL ASDIRECTED PRN PRN Reason: Hemorrhage Last Admin: 04/13/20 21:35 Dose: 800 mcg Documented by: Naloxone HCl (Narcan) 0.1 mg IVPUSH SEECOMMENT PRN PRN Reason: Respiratory Depression Ondansetron HCl (Zofran) 4 mg IVPUSH Q4H PRN PRN Reason: Nausea/Vomiting Last Admin: 04/13/20 17:44 Dose: 4 mg Documented by: Sufentanil Citrate (Sufenta) Confirm Administered Dose 50 mcg .ROUTE .STK-MED ONE Stop: 04/13/20 17:49 Last Admin: 04/14/20 04:41 Dose: Not Given Documented by:
--- NOTE | 2020-04-15 08:09 | PCM.PNPP ---
- General Info Date of Service: 04/15/20 Admission Dx/Problem (Free Text): Patient is day 2 s/p vaginal delivery. She reports her lochia is mild. She is not . She has good pain control with OTC medications. She has been advancing her diet and has good PO intake. She denies nausea and vomiting. She has been urinating spontaneously. She is passing flatus. She has had a bowel movement. She has been ambulating. She has no complaints today. Her blood pressures were mostly normal overnight. She denies headaches, vision changes, RUQ abdominal pain. Her edema is improving. - Review of Systems General: Denies: Fever, Chills HEENT: Denies: Headaches, Visual Changes Pulmonary: Denies: Shortness of Breath Cardiovascular: Reports: Edema. Denies: Chest Pain, Palpitations, Lightheadedn ess Gastrointestinal: Denies: Abdominal Pain, Diarrhea, Nausea, Vomiting Skin: Denies: Rash Neurological: Denies: Dizziness, Headache, Weakness - Patient Data Vital Signs - Most Recent: Last Vital Signs Temp 97.6 F 04/15/20 05:00 Pulse 76 04/15/20 05:00 Resp 20 04/15/20 05:00 BP 122/56 L 04/15/20 05:00 Pulse Ox 100 04/15/20 05:00 Weight - Most Recent: 262 lb Lab Results - Last 24 Hours: Laboratory Results - last 24 hr 04/14/20 Range/Units 09:13 WBC 15.3 H (5.0-10.0) 10^3/uL RBC 2.96 L (4.2-5.4) 10^6/uL Hgb 9.0 L D (12.0-16.0) g/dL Hct 28.5 L (37.0-47.0) % MCV 96.3 (80-100) fL MCH 30.4 (27.0-34.0) pg MCHC 31.6 L (33.0-35.0) g/dL Plt Count 210 (150-450) 10^3/uL Med Orders - Current: Current Medications Acetaminophen (Tylenol) 650 mg PO Q6H PRN PRN Reason: mild pain or fever Benzocaine/Menthol (Dermoplast Pain Relief [place]) 0 gm TOP Q4H PRN PRN Reason: Perineal comfort measures Last Admin: 04/14/20 00:10 Dose: 1 spray Documented by: Carboprost Tromethamine (Hemabate Ds) 250 mcg IM ASDIRECTED PRN PRN Reason: Excessive vaginal bleeding Docusate Sodium (Colace) 100 mg PO BID PRN PRN Reason: Constipation Last Admin: 04/15/20 08:02 Dose: 100 mg Documented by: Famotidine (Pepcid) 20 mg PO BID PRN PRN Reason: Heartburn Fentanyl (Sublimaze) 50 mcg IVPUSH ONETIME PRN PRN Reason: Pain Last Admin: 04/13/20 16:46 Dose: 50 mcg Documented by: Hydroxyzine HCl (Atarax) 25 mg PO Q8H PRN PRN Reason: Anxiety Tranexamic Acid 1,000 mg/ (Sodium Chloride) 110 mls @ 660 mls/hr IV ONETIME PRN PRN Reason: Bleeding Ibuprofen (Motrin) 800 mg PO Q8H PRN PRN Reason: Mild Pain or Fever Last Admin: 04/15/20 08:02 Dose: 800 mg Documented by: Misoprostol (Cytotec) 800 mcg RECTAL ONETIME PRN PRN Reason: Hemorrhage Oxytocin (Pitocin) 10 unit IM ONETIME PRN PRN Reason: Bleeding Prenat Multivit/[place]/Iron/Folic Ac ( Plus Iron) 1 each PO DAILY DENIS Last Admin: 04/15/20 08:02 Dose: 1 each Documented by: Simethicone (Simethicone) 80 mg PO Q4H PRN PRN Reason: Gas Sodium Chloride (Saline Flush) 10 ml FLUSH ASDIRECTED PRN PRN Reason: Keep Vein Open Sodium Chloride (Saline Flush) 10 ml FLUSH ASDIRECTED PRN PRN Reason: Keep Vein Open [place] (Medi-Pads) 1 each TOP Q4HR PRN PRN Reason: Perineal Comfort Measure Last Admin: 04/14/20 00:11 Dose: 1 pad Documented by: Zolpidem Tartrate (Ambien) 5 mg PO BEDTIME PRN PRN Reason: Insomnia Discontinued Medications Acetaminophen (Tylenol) 650 mg PO Q4H PRN PRN Reason: Pain/Fever Carboprost Tromethamine (Hemabate Ds) 250 mcg IM ASDIRECTED PRN PRN Reason: HEMORRHAGE Ephedrine Sulfate (Ephedrine Sulfate) 5 mg IVPUSH Q5M PRN PRN Reason: See Label Comments Epinephrine HCl (Adrenalin) Confirm Administered Dose 1 mg .ROUTE .STK-MED ONE Stop: 04/13/20 17:49 Last Admin: 04/14/20 04:41 Dose: Not Given Documented by: Fentanyl (Sublimaze) Confirm Administered Dose 100 mcg .ROUTE .STK-MED ONE Stop: 04/13/20 17:49 Last Admin: 04/14/20 04:41 Dose: Not Given Documented by: Fentanyl (Sublimaze) Confirm Administered Dose 100 mcg .ROUTE .STK-MED ONE Stop: 04/13/20 22:18 Last Admin: 04/14/20 05:11 Dose: Not Given Documented by: Fentanyl (Sublimaze) 50 mcg IVPUSH ONETIME ONE Stop: 04/13/20 22:22 Last Admin: 04/13/20 22:21 Dose: 50 mcg Documented by: Lactated Ringer's (Ringers, Lactated) 1,000 mls @ 999 mls/hr IV ASDIRECTED DENIS Last Admin: 04/13/20 18:55 Dose: 125 mls/hr Documented by: Oxytocin/Sodium Chloride (Pitocin In Ns 30 Unit/500 Ml) 30 unit in 500 mls @ 2 mls/hr IV TITRATE DENIS; Protocol Last Titration: 04/14/20 00:50 Dose: 0 munits/min, 0 mls/hr Documented by: Tranexamic Acid 1,000 mg/ (Sodium Chloride) 110 mls @ 660 mls/hr IV ONETIME PRN PRN Reason: Bleeding Last Admin: 04/13/20 21:38 Dose: 660 mls/hr Documented by: Lactated Ringer's (Ringers, Lactated) 500 mls @ 999 mls/hr IV SEECOMMENT DENIS Lactated Ringer's (Ringers, Lactated) 500 mls @ 999 mls/hr IV .BOLUS DENIS Lactated Ringer's (Ringers, Lactated) 1,000 mls @ 125 mls/hr IV ASDIRECTED DENIS Labetalol HCl (Normodyne) 10 mg IVPUSH ONETIME ONE Stop: 04/12/20 14:11 Last Admin: 04/13/20 07:02 Dose: Not Given Documented by: Labetalol HCl (Normodyne) 100 mg PO ONETIME ONE Stop: 04/12/20 19:17 Last Admin: 04/12/20 20:09 Dose: 100 mg Documented by: Labetalol HCl (Normodyne) 100 mg PO ONETIME ONE Stop: 04/13/20 06:15 Last Admin: 04/13/20 07:29 Dose: 100 mg Documented by: Lidocaine HCl (Xylocaine-Mpf 1%) 30 ml INJECT ASDIRECTED PRN PRN Reason: Perineal Repair Last Admin: 04/13/20 21:40 Dose: 15 ml Documented by: Methylergonovine Maleate (Methergine) 0.2 mg IM ASDIRECTED PRN PRN Reason: Hemorrhage Misoprostol (Cytotec) 25 mcg VAG Q4H PRN PRN Reason: cervical ripening Last Admin: 04/13/20 02:24 Dose: 25 mcg Documented by: Misoprostol (Cytotec) 800 mcg RECTAL ASDIRECTED PRN PRN Reason: Hemorrhage Last Admin: 04/13/20 21:35 Dose: 800 mcg Documented by: Naloxone HCl (Narcan) 0.1 mg IVPUSH SEECOMMENT PRN PRN Reason: Respiratory Depression Ondansetron HCl (Zofran) 4 mg IVPUSH Q4H PRN PRN Reason: Nausea/Vomiting Last Admin: 04/13/20 17:44 Dose: 4 mg Documented by: Sufentanil Citrate (Sufenta) Confirm Administered Dose 50 mcg .ROUTE .STK-MED ONE Stop: 04/13/20 17:49 Last Admin: 04/14/20 04:41 Dose: Not Given Documented by: - Interaction Support Person: - Recovery Exam Fundal Tone: Firm Fundal Level: At Umbilicus Fundal Placement: Midline Lochia Amount: Small Lochia Color: Rubra/Red Perineum Description: Intact, Minimal Bruising/Swelling Episiotomy/Laceration: Approximated Bladder Status: Voiding Urinary Elimination: Voided - Exam General: Alert, Oriented, Cooperative HEENT: EOMI, Mucous Membr. Moist/[place] Neck: Supple Lungs: Clear to Auscultation, Normal Respiratory Effort Cardiovascular: Regular Rate, Regular Rhythm, No Murmurs GI/Abdominal Exam: Normal Bowel Sounds, Soft, No Distention Extremities: Non-Tender, Pedal Edema Skin: Warm, Dry, Intact Neurological: No New Focal Deficit - Problem List & Annotations (1) Gestational hypertension SNOMED Code(s): 637298589 Code(s): O13.9 - GESTATIONAL HTN W/O SIGNIFICANT PROTEINURIA, UNSP TRIMESTER Status: Acute Current Visit: Yes (2) Pre-eclampsia SNOMED Code(s): 299634941 Code(s): O14.90 - UNSPECIFIED PRE-ECLAMPSIA, UNSPECIFIED TRIMESTER Status: Acute Current Visit: Yes (3) High-risk SNOMED Code(s): 18194035 Code(s): O09.90 - SUPERVISION OF HIGH RISK , UNSP, UNSP TRIMESTER Status: Acute Current Visit: Yes (4) Group B Streptococcus not isolated SNOMED Code(s): 612775768 Code(s): HIL5100 - Status: Acute Current Visit: Yes (5) History of herpes genitalis SNOMED Code(s): 335702094 Code(s): Z86.19 - PERSONAL HISTORY OF OTHER INFECTIOUS AND PARASITIC DISEASES Status: Acute Current Visit: Yes (6) Depression during in third trimester SNOMED Code(s): 98602802, 204964511 Code(s): O99.343 - [facility] MENTAL DISORDERS COMPLICATING , THIRD TRIMESTER; F32.9 - MAJOR DEPRESSIVE DISORDER, SINGLE EPISODE, UNSPECIFIED Status: Acute Current Visit: Yes (7) Vaginal delivery SNOMED Code(s): 371634825 Code(s): O80 - ENCOUNTER FOR FULL-TERM UNCOMPLICATED DELIVERY Status: Acute Current Visit: Yes (8) Laceration of vaginal wall or sulcus without perineal laceration during delivery SNOMED Code(s): 021775134 Code(s): O71.4 - OBSTETRIC HIGH VAGINAL LACERATION ALONE Status: Acute Current Visit: Yes - Problem List Review Problem List Initiated/Reviewed/Updated: Yes - My Orders Last 24 Hours: My Active Orders 04/14/20 09:00 Vit with Ca/FA/Iron [ Plus Iron] 1 each PO DAILY 04/14/20 20:38 Urinary Catheter Insertion [Insert Urinary Catheter] [OM.PC] PRN 04/15/20 08:08 Ready for Discharge [RC] PER UNIT ROUTINE - Plan Plan:: Continue normal post cares. Continue to ice to minimize swelling. Encouraged oral hydration. Urine output has been adequate. Blood pressures stable overnight, one elevated when she was up and moving. Follow up appt on Saturday to check blood pressure. Plan for discharge home today. Signs and symptoms of depression and normal expectations of lochia discussed. She had been on Zoloft and will have her restart it. Advised pelvic rest for 6 weeks. control to be discussed at post visit. Follow up in 6 weeks for post visit. Ying Espinosa MD
== END 2020-04-15 09:06 | disposition home or self-care (01) | DRG 807 ==
LOC: DL.OBCHECK 07:56 → DL.OB 08:18 → UNDOADMOB 08:18 → DL.OB 08:21 → OBSVTOIN 04-13 21:12
PROVIDERS: ADMIT Family Medicine; ATTEND Family Medicine
PROC: 10E0XZZ Delivery of Products of Conception, External Approach (ICD-10-PCS; principal; 2020-04-13)
PROC: 10907ZC Drainage of Amniotic Fluid, Therapeutic from Products of Conception, Via Natural or Artificial Opening (ICD-10-PCS; 2020-04-13)
PROC: 3E0P7VZ Introduction of Hormone into Female Reproductive, Via Natural or Artificial Opening (ICD-10-PCS; 2020-04-13)
PROC: 3E033VJ Introduction of Other Hormone into Peripheral Vein, Percutaneous Approach (ICD-10-PCS; 2020-04-13)
PROC: 0UQGXZZ Repair Vagina, External Approach (ICD-10-PCS; 2020-04-13)
PROC: 3E0R3BZ Introduction of Anesthetic Agent into Spinal Canal, Percutaneous Approach (ICD-10-PCS; 2020-04-13)
PROC: 00HU33Z Insertion of Infusion Device into Spinal Canal, Percutaneous Approach (ICD-10-PCS; 2020-04-13)
DX: O14.94 Unspecified pre-eclampsia, complicating childbirth (principal); Z37.0 Single live birth; O71.4 Obstetric high vaginal laceration alone; O99.344 Other mental disorders complicating childbirth; F32.9 Major depressive disorder, single episode, unspecified; Z87.891 Personal history of nicotine dependence; O99.62 Diseases of the digestive system complicating childbirth; K21.9 Gastro-esophageal reflux disease without esophagitis; Z11.59 Encounter for screening for other viral diseases; Z3A.37 37 weeks gestation of pregnancy; F41.9 Anxiety disorder, unspecified
CPT/HCPCS: 36415; 51701; 59409; 82565; 82570; 83615; 84156; 84450; 84460; 84520; 84550; 85027; A9270-GY; J0171; J2001; J2405; J2590; J3010; J7050; J7120; U0002

== ENCOUNTER 2023-07-29 07:54 | Inpatient (IN) | payer BC ==
[2023-07-29] MEDS ORDERED: Misoprostol 400 MCG (4 X 100 MCG TAB) RECTAL PRN (09:41)
[2023-07-29] MEDS ORDERED: Sodium Chloride 0.9% 10 ML Syringe FLUSH PRN ×2 (09:41→23:57)
[2023-07-29] MEDS ORDERED: Lactated Ringers 1,000 ML IV ONE (09:41)
[2023-07-29] MEDS ORDERED: Acetaminophen 325 MG Tab PO PRN (09:41)
[2023-07-29] MEDS ORDERED: Lidocaine 1% 30 ML SDV INJECT ONE (09:41)
[2023-07-29] MEDS ORDERED: Ondansetron 4 MG/2 ML SDV IVPUSH PRN (09:41)
[2023-07-29] MEDS ORDERED: Carboprost Tromethamine 250 MCG/1 ML Amp IM PRN (09:41)
[2023-07-29] MEDS ORDERED: Methylergonovine 0.2 MG/1 ML Amp IM PRN (09:41)
[2023-07-29] MEDS ORDERED: Tranexamic Acid 1,000 MG in Sodium Chloride 0.9% 100 ML IV PRN (09:41)
[2023-07-29] MEDS ORDERED: Lactated Ringers 1,000 ML IV SCH (09:45)
[2023-07-29] MEDS ORDERED: Misoprostol 50 MCG (1/2 of 100 MCG) Tab PO ONE (09:45)
[2023-07-29 09:57] LABS: HEMATOCRIT 33.9 % (37.0-47.0); HEMOGLOBIN 10.9 g/dL (12.0-16.0); MEAN CORPUSCULAR HGB CONC 32.2 g/dL (33.0-35.0); MEAN CORPUSCULAR VOLUME 93.4 fL (80-100); RED BLOOD CELL COUNT 3.63 10^6/uL (4.2-5.4); WHITE BLOOD CELL COUNT,WBC 9.6 10^3/uL (5.0-10.0)
[2023-07-29 10:17] LABS: ALBUMIN 2.3 g/dL (3.4-5.0); ANION GAP 12.9 mEq/L (7-13); BLOOD UREA NITROGEN,BUN 10 mg/dL (7-18); BUN/CREATININE RATIO 14.9 (No establ ref range); CALCIUM 8.5 mg/dL (8.5-10.1); CARBON DIOXIDE,CO2 25 mmol/L (21-32); CHLORIDE,CL 103 mmol/L (98-107); CREATININE 0.67 mg/dL (0.55-1.02); GLUCOSE RANDOM 88 mg/dL (70-99); POTASSIUM,K 3.9 mmol/L (3.5-5.1); PROTEIN TOTAL,TP 6.1 g/dL (6.4-8.2); SODIUM,NA 137 mmol/L (136-145)
[2023-07-29 10:18] LABS: ALANINE AMINOTRANSFERASE,ALT 56 U/L (14-59); ALKALINE PHOSPHATASE 215 U/L (46-116); ASPARTATE AMNIOTRANSFERASE,AST 32 U/L (15-37); BILIRUBIN TOTAL 0.3 mg/dL (0.2-1.0); LACTATE DEHYDROGENASE,LDH 200 U/L (81-234)
[2023-07-29 10:44] LABS: A/G RATIO 0.61; ESTIMATED GFR 121 mL/min (>=60)
[2023-07-29] MEDS: Labetalol 20 MG/4 ML Syringe IVPUSH ONE ×2 (11:42→11:57)
[2023-07-29] MEDS ORDERED: Magnesium Sulfate/Water 4 GM in Premix Bag 1 BAG IV ONE (11:46)
[2023-07-29] MEDS ORDERED: Labetalol 20 MG/4 ML Syringe ONE (11:54)
[2023-07-29] MEDS: Labetalol 100 MG Tab PO SCH ×4 (12:34→23:23)
[2023-07-29] MEDS ORDERED: Misoprostol 25 MCG (1/4 of 100 MCG) Tab VAG PRN (13:26)
[2023-07-29] MEDS ORDERED: hydrALAZINE 20 MG/ML SDV IVPUSH PRN (13:26)
[2023-07-29] MEDS ORDERED: Labetalol 20 MG/4 ML Syringe IVPUSH ONE (13:45)
[2023-07-29] MEDS ORDERED: Labetalol 100 MG Tab PO SCH ×2 (14:00→18:00)
[2023-07-29] MEDS ORDERED: fentaNYL 100 MCG/2 ML SDV IVPUSH ONE (18:36)
[2023-07-29] MEDS ORDERED: Naloxone 2 MG/2 ML Syringe IVPUSH PRN (18:36)
[2023-07-29] MEDS ORDERED: Bupivacaine 0.25% 10 ML SDV ONE (19:49)
[2023-07-29] MEDS ORDERED: fentaNYL 100 MCG/2 ML SDV ONE (19:49)
[2023-07-29] MEDS ORDERED: ePHEDrine 50 MG/ML SDV IVPUSH PRN (20:10)
[2023-07-29] MEDS ORDERED: Phenylephrine HCl In 0.9% NaCl 1 MG/10 ML Syringe IVPUSH PRN (20:10)
[2023-07-29] MEDS ORDERED: Ropivacaine 200 MG in Premix Bag 1 BAG EPIDUR SCH (20:15)
[2023-07-29] MEDS: Magnesium Sulfate/Water 20 GM/500 ML BAG IV SCH (20:50)
[2023-07-29] MEDS: Oxytocin/Normal Saline 30 UNIT/500 ML BAG IV SCH ×2 (21:51→22:25)
[2023-07-29] MEDS: Ketorolac 30 MG/ML SDV IVPUSH SCH (23:52)
[2023-07-29] MEDS ORDERED: Witch Hazel Medicated Pads 100/Jar TOP PRN (23:57)
[2023-07-29] MEDS ORDERED: Diphtheria,Pertussis(Acell),Tetanus Vaccine 0.5 ML Syringe IM ONE (23:57)
[2023-07-29] MEDS ORDERED: Simethicone 80 MG Tab.Chew PO PRN (23:57)
[2023-07-29] MEDS ORDERED: Benzocaine/Menthol 20%-0.5% Spray 78 GM Cannister TOP PRN (23:57)
[2023-07-30] MEDS: Ketorolac 30 MG/ML SDV IVPUSH SCH (06:05)
[2023-07-30] MEDS: Labetalol 100 MG Tab PO SCH ×3 (06:05→17:32)
[2023-07-30 06:42] LABS: HEMOGLOBIN 10.6 g/dL (12.0-16.0); MEAN CORPUSCULAR HEMOGLOBIN 29.9 pg (27.0-34.0); MEAN CORPUSCULAR HGB CONC 32.1 g/dL (33.0-35.0); MEAN CORPUSCULAR VOLUME 93.2 fL (80-100); RED BLOOD CELL COUNT 3.54 10^6/uL (4.2-5.4); WHITE BLOOD CELL COUNT,WBC 15.2 10^3/uL (5.0-10.0)
[2023-07-30] MEDS: Magnesium Sulfate/Water 20 GM/500 ML BAG IV SCH ×2 (06:44→16:01)
[2023-07-30] MEDS: Acetaminophen 325 MG Tab PO PRN ×3 (06:47→21:46)
[2023-07-30 07:06] LABS: ANION GAP 11.3 mEq/L (7-13); BILIRUBIN TOTAL 0.5 mg/dL (0.2-1.0); BUN/CREATININE RATIO 10.5 (No establ ref range); CALCIUM 7.7 mg/dL (8.5-10.1); CREATININE 0.76 mg/dL (0.55-1.02); EST CRCL DRUG DOSING (CG) 98.28 mL/min; POTASSIUM,K 4.3 mmol/L (3.5-5.1)
[2023-07-30 07:10] LABS: A/G RATIO 0.5
[2023-07-30] MEDS: valACYclovir 1,000 MG Tab PO SCH (08:57)
[2023-07-30] MEDS: Escitalopram 10 MG Tab PO SCH (08:58)
[2023-07-30] MEDS: Prenatal Multivitamin with Calcium/Folic Acid/Iron Tab PO SCH (12:35)
[2023-07-30] MEDS: Ibuprofen 800 MG Tab PO PRN (16:30)
[2023-07-31] MEDS: Labetalol 100 MG Tab PO SCH ×2 (01:18→08:30)
[2023-07-31] MEDS: Docusate Sodium 100 MG Cap PO PRN ×2 (01:19→08:27)
[2023-07-31] MEDS: Ibuprofen 800 MG Tab PO PRN ×2 (01:19→09:21)
[2023-07-31] MEDS: Prenatal Multivitamin with Calcium/Folic Acid/Iron Tab PO SCH (08:26)
[2023-07-31] MEDS: Escitalopram 10 MG Tab PO SCH (08:27)
[2023-07-31] MEDS: valACYclovir 1,000 MG Tab PO SCH (08:27)
== END 2023-07-31 09:33 | disposition home or self-care (01) | DRG 560 ==
LOC: DL.OBCHECK 07:54 → DL.OB 07:55 → UNDOADMOB 07:55 → INTOOBSV 09:41 → DL.OB 09:41 → OBSVTOIN 09:41 → UNDOADMOB 09:41 → INTOOBSV 16:44 → DL.OB 16:44 → OBSVTOIN 16:44
PROVIDERS: ADMIT Student in an Organized Health Care Education/Training Program; ATTEND Student in an Organized Health Care Education/Training Program
PROC: 10E0XZZ Delivery of Products of Conception, External Approach (ICD-10-PCS; principal; 2023-07-29)
PROC: 10907ZC Drainage of Amniotic Fluid, Therapeutic from Products of Conception, Via Natural or Artificial Opening (ICD-10-PCS; 2023-07-29)
PROC: 3E033VJ Introduction of Other Hormone into Peripheral Vein, Percutaneous Approach (ICD-10-PCS; 2023-07-29)
PROC: 3E0P7VZ Introduction of Hormone into Female Reproductive, Via Natural or Artificial Opening (ICD-10-PCS; 2023-07-29)
PROC: 3E0R3BZ Introduction of Anesthetic Agent into Spinal Canal, Percutaneous Approach (ICD-10-PCS; 2023-07-29)
PROC: 00HU33Z Insertion of Infusion Device into Spinal Canal, Percutaneous Approach (ICD-10-PCS; 2023-07-29)
PROC: 10D17Z9 Manual Extraction of Products of Conception, Retained, Via Natural or Artificial Opening (ICD-10-PCS; 2023-07-29)
DX: O14.04 Mild to moderate pre-eclampsia, complicating childbirth (principal); F41.9 Anxiety disorder, unspecified; F32.A Depression, unspecified; O99.344 Other mental disorders complicating childbirth; O98.32 Other infections with a predominantly sexual mode of transmission complicating childbirth; A60.00 Herpesviral infection of urogenital system, unspecified; O99.214 Obesity complicating childbirth; O69.81X0 Labor and delivery complicated by cord around neck, without compression, not applicable or unspecified; Z37.0 Single live birth; Z3A.37 37 weeks gestation of pregnancy
CPT/HCPCS: 36415; 51702; 59409; 80053; 83615; 83735; 85027; 86850; 86900; 86901; A9270-GY; J1885; J2590; J2795; J3010; J3475; J3490; J7120